=== PATIENT | female | born 1980 | race Caucasian/White ===

== ENCOUNTER 2021-01-07 15:54 | Inpatient (IN) | payer OTHER ==
[~2021-01-07] VITALS: Ht 170.2 cm; Wt 77.3 kg
[2021-01-07] MEDS ORDERED: CELEXA PO (16:17)
[2021-01-07 16:27] VITALS: BP 116/63
--- NOTE | 2021-01-07 16:30 | NUR ---
ARRIVED C/O PAIN IN LOWER BACK RADIATING TO NECK AND SHOULDER BLADES. HAS BEEN TOLD IN PAST SHE HAS KIDNEY STONES.
[2021-01-07 17:23] LABS: BASOPHILS 0.3 % (0-2); EOSINOPHILS 0.5 % (0-7); HEMATOCRIT 34.3 % (36.0-48.0); HEMOGLOBIN 11.6 g/dL (12-16); LYMPHOCYTES 10.7 % (15-50); MCHC 33.8 g/dL (31.0-37.0); MCV 88.7 fL (80.0-100.0); MEAN PLATELET VOLUME 7.6 fL (7.4-10.4); MONOCYTES 8.9 % (2-11); NEUTROPHILS 79.6 % (40-80); PLATELET COUNT 170 10x3/uL (130-400); RBC 3.86 10x6/uL (4.00-5.40); RDW 12.8 % (11.5-14.5); WBC 8.6 10x3/uL (4.8-10.8)
[2021-01-07 17:36] LABS: ALBUMIN 3.2 g/dL (3.4-5.0); ANION GAP 10.5 mmol/L (8-16); BILIRUBIN - TOTAL 0.89 mg/dL (0.2-1.3); CALCIUM 8.6 mg/dL (8.5-10.1); CARBON DIOXIDE 27.3 mmol/L (21.0-32.0); CREATININE - SERUM 0.9 mg/dL (0.6-1.3); MAGNESIUM - SERUM 1.8 mg/dL (1.8-2.4); PROTEIN - SERUM 7.5 g/dL (6.4-8.2)
[2021-01-07 17:40] LABS: POTASSIUM - SERUM 2.8 mmol/L (3.5-5.1)
[2021-01-07 17:56] LABS: HCG URINE NEGATIVE (NEGATIVE)
[2021-01-07 17:57] LABS: BILIRUBIN NEGATIVE (NEGATIVE); KETONE SMALL mg/dL (NEGATIVE); NITRITE NEGATIVE (NEGATIVE); UROBILINOGEN NORMAL mg/dL (< 2)
[2021-01-07 17:59] LABS: WHITE CELLS - URINE >50 HPF (0-4)
[2021-01-07 18:00] LABS: BACTERIA MANY HPF (NONE SEEN)
--- NOTE | 2021-01-07 18:28 | NUR ---
TO CT VIA WHEELCHAIR
[2021-01-07 19:00] VITALS: BP 109/66
[2021-01-07 20:00] VITALS: BP 106/36
[2021-01-07 21:00] VITALS: BP 98/59
[2021-01-07 22:00] VITALS: BP 81/44
[2021-01-07 23:00] VITALS: BP 96/61
--- NOTE | 2021-01-08 01:10 | NUR ---
PT RECEIVED TO ROOM 2139 VIA WC, ACCOMPANIED BY ED NURSE. PT AWAKE, ALERT AND OREINTED PIV TO RIGHT AC NOTED. PT AMBULATED WITHOUT ASSIST TO BATHROOM. VSS. PT REPORTS NAUSEA PRN ZOFRAN GIVEN PER ORDERS. WILL CONTINUE TO MONITOR
[2021-01-08 01:45] VITALS: BP 112/68
--- NOTE | 2021-01-08 01:45 | NUR ---
PT VOMITED APPROX 100CC DARK GREEN EMESIS INTO TRASH CAN, ZOFRAN ALREADY GIVEN. WILL CONTINUE TO MONITOR
[2021-01-08 01:49] VITALS: BP 112/68; Ht 170.2 cm; Wt 77.3 kg
[2021-01-08 04:50] VITALS: BP 122/63
[2021-01-08 06:13] LABS: BASOPHILS 0.2 % (0-2); EOSINOPHILS 0.1 % (0-7); HEMATOCRIT 35.4 % (36.0-48.0); HEMOGLOBIN 11.8 g/dL (12-16); LYMPHOCYTES 9.7 % (15-50); MCH 29.8 pg (26.0-34.0); MCHC 33.4 g/dL (31.0-37.0); MCV 89.2 fL (80.0-100.0); MEAN PLATELET VOLUME 9.5 fL (7.4-10.4); MONOCYTES 10.7 % (2-11); NEUTROPHILS 79.3 % (40-80); RBC 3.96 10x6/uL (4.00-5.40); RDW 13.1 % (11.5-14.5)
[2021-01-08 06:15] LABS: PLATELET COUNT 125 10x3/uL (130-400)
[2021-01-08 06:24] LABS: RETIC 1.26 % (0.45-2.28)
[2021-01-08 10:35] LABS: APTT 40.8 SECONDS (22.8-39.4); INR 1.32 (0.85-1.17); PROTIME 15.2 SECONDS (11.6-15.0)
[2021-01-08 11:01] LABS: % SATURATION 4 % (15-55); IRON 8 ug/dl (35-150); TOTAL IRON BIND CAPACITY 180 ug/dl (260-445); UNSAT IRON BIND CAPACITY 172 ug/dl (150-375)
[2021-01-08 11:16] LABS: ALBUMIN 2.7 g/dL (3.4-5.0); ALKALINE PHOSPHATASE 108 U/L (30-120); ALT (SGPT) 61 U/L (10-68); BILIRUBIN - TOTAL 1.11 mg/dL (0.2-1.3); CALC OSMOLALITY 269 mosm/kg (275-300); CALCIUM 7.8 mg/dL (8.5-10.1); CARBON DIOXIDE 25.6 mmol/L (21.0-32.0); CHLORIDE - SERUM 102 mmol/L (98-107); CKMB 0.6 U/L (0.0-3.6); CREATINE KINASE 188 UL (21-215); CREATININE - SERUM 0.9 mg/dL (0.6-1.3); FERRITIN 569 ng/mL (3-244); GLUCOSE 92 mg/dL (74-106); MAGNESIUM - SERUM 1.7 mg/dL (1.8-2.4); POTASSIUM - SERUM 3.2 mmol/L (3.5-5.1); SODIUM 136 mmol/L (136-145); TROPONIN-I < 0.017 ng/mL (0.000-0.060); eGFR NON AFRICAN AMERICAN 73 mL/min (90-120)
[2021-01-08 11:20] LABS: UREA NITROGEN 7 mg/dL (7-18)
[2021-01-08 12:00] VITALS: BP 126/80
[2021-01-08 15:00] VITALS: BP 130/74
[2021-01-08 18:56] LABS: NITRITE NEGATIVE (NEGATIVE)
[2021-01-08 18:57] LABS: BILIRUBIN NEGATIVE (NEGATIVE); KETONE MODERATE mg/dL (NEGATIVE); UROBILINOGEN NORMAL mg/dL (< 2)
[2021-01-08 18:58] LABS: BACTERIA MODERATE HPF (NONE SEEN); SQUAMOUS EPITHELIAL 0-5 HPF (0-4)
[2021-01-08 20:00] VITALS: BP 97/53
[2021-01-09] VITALS: BP 95/53
[2021-01-09 04:00] VITALS: BP 105/50; BP 114/79
[2021-01-09 07:24] LABS: BASOPHILS 0.3 % (0-2); EOSINOPHILS 0.7 % (0-7); LYMPHOCYTES 14.4 % (15-50); MCH 30.6 pg (26.0-34.0); MCHC 34.7 g/dL (31.0-37.0); MCV 88.1 fL (80.0-100.0); MEAN PLATELET VOLUME 7.8 fL (7.4-10.4); MONOCYTES 12.8 % (2-11); NEUTROPHILS 71.8 % (40-80); PLATELET COUNT 143 10x3/uL (130-400); RDW 13.1 % (11.5-14.5)
[2021-01-09 07:48] LABS: ALBUMIN 2.2 g/dL (3.4-5.0); ALKALINE PHOSPHATASE 86 U/L (30-120); CALC OSMOLALITY 270 mosm/kg (275-300); CALCIUM 7.5 mg/dL (8.5-10.1); CARBON DIOXIDE 25.7 mmol/L (21.0-32.0); CHLORIDE - SERUM 104 mmol/L (98-107); CREATININE - SERUM 0.7 mg/dL (0.6-1.3); GLUCOSE 89 mg/dL (74-106); MAGNESIUM - SERUM 1.7 mg/dL (1.8-2.4); PROTEIN - SERUM 6.1 g/dL (6.4-8.2); SODIUM 137 mmol/L (136-145); UREA NITROGEN 6 mg/dL (7-18); eGFR NON AFRICAN AMERICAN > 90 mL/min (90-120)
[2021-01-09 07:51] LABS: ALT (SGPT) 44 U/L (10-68)
[2021-01-09 07:52] LABS: POTASSIUM - SERUM 2.9 mmol/L (3.5-5.1)
[2021-01-09 07:54] LABS: HEMATOCRIT 26.2 % (36.0-48.0); HEMOGLOBIN 9.1 g/dL (12-16); RBC 2.98 10x6/uL (4.00-5.40); WBC 5.9 10x3/uL (4.8-10.8)
--- NOTE | 2021-01-09 08:07 | NUR ---
PT LYING IN BED. IV CDI. LOW K, GIVEN 60 MEQ. RR EVEN NONLABORED. ALL NEEDS MET AT THIS TIME. CLWR.
[2021-01-09 09:49] VITALS: BP 111/66
[2021-01-09] MEDS ORDERED: LEVAQUIN750 MG PO (10:23)
--- NOTE | 2021-01-09 12:33 | NUR ---
PT DC HOME WITH FAMILY MEMBER. IV DC. IV CATH TIP INTACT. DC INSTRUCTIONS PROVIDED ORALLY AND WRITTEN. PT VERBALIZED UNDERSTANDING
== END 2021-01-09 12:34 | disposition home or self-care (01) | DRG 690 ==
LOC: D.ER 15:54 → D.M2 22:02
PROVIDERS: Family Medicine; Student in an Organized Health Care Education/Training Program; ADMIT Family Medicine; ATTEND Family Medicine
DX: N10 Acute pyelonephritis (principal); R74.01 Elevation of levels of liver transaminase levels; D64.9 Anemia, unspecified; E87.6 Hypokalemia